=== PATIENT | female | born 1950 | race Caucasian/White ===

== ENCOUNTER 2017-03-27 14:14 | Inpatient (IN) | payer OTHER ==
[~2017-03-27] VITALS: Ht 160 cm; Wt 61.0 kg
[~2017-03-27 14:14] MED LIST: CALCIUM 600 +1 EA15 PO; CIPRO500 MG PO; EVENING PRIMR1000 MG PO; FLAGYL500 MG PO; HYDROCODON-ACE1 EAC7 PO; LO-DOSE ASPIRIN81 M1 PO; LOVASTATIN20 MG PO; MAGNESIUM400 M1 PO; VITAMIN B-125000 MC1 PO
[2017-03-27 15:05] LABS: BASE EXCESS 3.2 mEq/L (-3 to +3); BICARBONATE 26.9 mEq/L (22-26); CARBOXY HGB 1.9 % (0-5); METHEMOGLOBIN 1.2 % (0-1.5); PCO2 37 mm Hg (35-45); PO2 65 mm Hg (80-100); SITE RR; pH 7.47 (7.35-7.45)
[2017-03-27 15:06] LABS: COMMENTS - BLOOD GASES A+C+; DEVICE RA; TOTAL RESP RATE 20 resp/min
[2017-03-27 16:13] LABS: HEMATOCRIT 36.5 % (36.0-46.0); HEMOGLOBIN 12.4 G/DL (11.9-15.5); MCH 31.2 PG (29.0-34.0); MCV 91.7 FL (83-99); PLATELET COUNT 171 K/uL (156-360); RBC DIS.WIDTH-CV 12.3 % (11.8-14.6); RBC DIS.WIDTH-SD 41.6 % (39-53); RED BLOOD COUNT 3.98 M/uL (3.80-5.20); WHITE BLOOD COUNT 11.4 K/uL (4.1-10.2)
[2017-03-27 16:16] LABS: PTT 29.4 SEC (25-37)
[2017-03-27 16:17] LABS: ALBUMIN 3.6 G/DL (3.2-4.8); CHLORIDE 97 MEQ/L (99-109); DIRECT BILIRUBIN 0.1 mg/dL (0.0-0.3); POTASSIUM 3.7 MEQ/L (3.7-5.4); SODIUM 134 MEQ/L (136-147); TOTAL BILIRUBIN 0.5 MG/DL (0.0-1.0)
[2017-03-27 16:22] LABS: ALKALINE PHOSPHATASE 101 IU/L (3-129); ALT (GPT) 93 IU/L (3-49); AST (GOT) 167 IU/L (2-34); CREATININE 0.7 MG/DL (0.6-1.3); GFR ESTIMATE (CALCULATED) > 59 mL/min/; GLUCOSE 102 mg/dL (70-99); LIPASE 23 U/L (1.0-51.0); TOTAL PROTEIN 7.7 G/DL (6.4-8.3); UREA NITROGEN (BUN) 19 mg/dL (9-23)
[2017-03-27 16:25] LABS: TROP-I INTERPRETATION NEGATIVE; TROPONIN-I < 0.01 ng/mL (0.0-0.30)
[2017-03-27 16:45] LABS: BASOPHIL (%) 0.1 % (0-1); EOSINOPHIL (%) 0 % (0-5); IMMATURE GRANULOCYTE (%) 0.3 % (0.0-0.7); LYMPHOCYTE (%) 9.5 % (15-42); LYMPHOCYTE COUNT 1.1 K/uL (1.0-2.8); MONOCYTE (%) 4.7 % (3-12); MONOCYTE COUNT 0.5 K/uL (0-0.8); NEUTROPHIL (%) 85.4 % (45-76); NEUTROPHIL COUNT 9.8 K/uL (1.8-6.4); PLAT.SUFFICIENCY ADEQUATE
[2017-03-27] MEDS ORDERED: ZITHROMAX500 MG PO (17:14)
[2017-03-27] MEDS ORDERED: LATANOPROST2.5 ML BOTH EYES (17:15)
[2017-03-27] MEDS ORDERED: TAMIFLU75 MG PO (17:15)
[2017-03-27] MEDS ORDERED: RESTASIS MULTI5.5 ML BOTH EYES (17:15)
[2017-03-27] MEDS ORDERED: COMBIGAN O20 DROP/5 BOTH EYES (17:16)
[2017-03-27 20:30] VITALS: BP 120/72
[2017-03-27 23:13] VITALS: BP 122/68
[2017-03-28 06:10] LABS: HEMATOCRIT 33.7 % (36.0-46.0); HEMOGLOBIN 11.2 G/DL (11.9-15.5); MCH 30.6 PG (29.0-34.0); MCHC 33.2 G/DL (30.0-36.0); MCV 92.1 FL (83-99); PLATELET COUNT 164 K/uL (156-360); RBC DIS.WIDTH-CV 12.3 % (11.8-14.6); RBC DIS.WIDTH-SD 42.5 % (39-53); RED BLOOD COUNT 3.66 M/uL (3.80-5.20); WHITE BLOOD COUNT 10.6 K/uL (4.1-10.2)
[2017-03-28 06:35] LABS: CHLORIDE 97 MEQ/L (99-109); CREATININE 0.7 MG/DL (0.6-1.3); GFR ESTIMATE (CALCULATED) > 59 mL/min/; GLUCOSE 103 mg/dL (70-99); POTASSIUM 3.8 MEQ/L (3.7-5.4); SODIUM 134 MEQ/L (136-147); UREA NITROGEN (BUN) 17 mg/dL (9-23)
[2017-03-28 07:10] VITALS: BP 118/70
[2017-03-28 16:40] VITALS: BP 141/66
[2017-03-28 23:36] VITALS: BP 139/76
[2017-03-29 07:57] VITALS: BP 145/76
[2017-03-29 15:33] VITALS: BP 126/71
[2017-03-29 23:36] VITALS: BP 132/77
[2017-03-30 04:00] VITALS: BP 125/78
[2017-03-30 07:54] VITALS: BP 127/79
[2017-03-30] MEDS ORDERED: LEVAQUIN500 MG PO (10:59)
[2017-03-30] MEDS ORDERED: PREDNISONE20 MG PO (10:59)
[2017-03-30] MEDS ORDERED: VENTOLIN HFA18 GM IH (11:00)
== END 2017-03-30 12:30 | disposition home or self-care (01) | DRG 195 ==
LOC: EME 14:14 → 4SOUTH 17:30 → EDOF 17:30 → CANRESERV 17:42 → ENRESERV 17:42 → 4SOUTH 20:57
PROVIDERS: Emergency Medicine; Family Medicine
DX: J11.08 Influenza due to unidentified influenza virus with specified pneumonia (principal); J15.9 Unspecified bacterial pneumonia; R09.02 Hypoxemia; J11.1 Influenza due to unidentified influenza virus with other respiratory manifestations; E78.5 Hyperlipidemia, unspecified; M85.80 Other specified disorders of bone density and structure, unspecified site
CPT/HCPCS: 36600; 80048; 80053; 82248; 82803; 83605; 83690; 84484; 85025; 85027; 85610; 85730; 87040; 93005; 94640; 94640 76; 94799; 99202; 99281; 99285; J1956; J2405; J2930